=== PATIENT | female | born 1965 | race American Indian/Alaskan Native ===

== ENCOUNTER 2020-04-07 06:55 | Outpatient (CLI) | payer BC ==
--- NOTE | 2020-04-07 08:00 | XRay Report ---
LEFT SHOULDER 3 VIEWS INDICATION / CLINICAL INFORMATION: Left shoulder pain. Fall 3 years ago. COMPARISON: None available. FINDINGS: BONES / JOINT(S): There are mild degenerative changes involving the glenohumeral joint and moderate d egenerative changes involving the acromioclavicular joint. There is no evidence of fracture, subluxat ion or destructive lesion. SOFT TISSUES: No significant abnormality. ADDITIONAL FINDINGS: The visualized left lung is clear. IMPRESSION: Degenerative changes without acute abnormality. Signer Name: Josh Solorzano MD Signed: 04/07/2020 7:56 AM Workstation Name: [id number]
== END 2020-04-07 06:56 | disposition home or self-care (01) ==
LOC: XRAY 06:55
PROVIDERS: ATTEND Internal Medicine
DX: M19.012 Primary osteoarthritis, left shoulder (principal)

== ENCOUNTER 2020-04-09 12:39 | Outpatient (CLI) | payer BC ==
[2020-04-09 13:32] LABS: Hematocrit 44.3 % (30.3-42.9); Mean Corpuscular HGB Conc 34 % (30-34); Mean Corpuscular Volume 83 fl (79-97); Platelet Count 207 K/mm3 (140-440); Red Blood Count 5.36 M/mm3 (3.65-5.03); Red Cell Distribution Width 16.4 % (13.2-15.2)
[2020-04-09 13:51] LABS: Alanine Aminotransferase 17 units/L (7-56); Albumin 4.5 g/dL (3.9-5); BUN/Creatinine Ratio 17; Blood Urea Nitrogen 15 mg/dL (7-17); Calcium 9.4 mg/dL (8.4-10.2); Chol/HDL Ratio 2.69 %; HDL Cholesterol 68 mg/dL (40-59); Hemolysis Index 6; LDL Cholesterol,Direct 104 mg/dL (50-130)
[2020-04-09 15:15] LABS: Total Cells Counted 100
[2020-04-09 15:16] LABS: Platelet Estimate Consistent w Auto; RBC Morphology Normal
[2020-04-11 21:32] LABS: Vitamin D, 25-OH, D2 19 ng/mL
--- NOTE | 2020-04-12 08:12 | Mammography Report ---
DIGITAL SCREENING MAMMOGRAM WITH CAD, 04/09/2020 CLINICAL INFORMATION / INDICATION: Routine screening mammography. TECHNIQUE: Digital bilateral 2D mammography was obtained in the craniocaudal and mediolateral obliqu e projections. This examination was interpreted with the benefit of Computer-Aided Detection analysis . COMPARISON: None available. FINDINGS: Breast Density: There are scattered areas of fibroglandular density. No dominant mass, suspicious calcifications, or architectural distortion in either breast. IMPRESSION: No mammographic evidence of malignancy. Follow up recommendation: Routine yearly BI-RADS Category 1: Negative. A "normal" or negative report should not discourage follow up or biopsy of a clinically significant f inding. A written summary of these findings will be mailed to the patient. The patient will be entered into a mammography reporting system which will generate a reminder letter for the patient's next appointmen t at the appropriate interval. The [employer] recommends yearly mammograms starting at age 40 and continuing as l heather as a woman is in good health. Breast MRI is recommended for women with an approximate 20-25% or greater lifetime risk of breast cancer, including women with a strong family history of breast or ova celina cancer or who have been treated for Hodgkin's disease. Signer Name: Benjy Huang MD Signed: 04/12/2020 8:08 AM Workstation Name: [email or web address]
== END 2020-04-09 12:40 | disposition home or self-care (01) ==
LOC: MAMMO 12:39
PROVIDERS: ATTEND Internal Medicine
DX: Z12.31 Encounter for screening mammogram for malignant neoplasm of breast (principal); Z00.00 Encounter for general adult medical examination without abnormal findings; Z13.1 Encounter for screening for diabetes mellitus; E55.9 Vitamin D deficiency, unspecified; E56.9 Vitamin deficiency, unspecified; R94.6 Abnormal results of thyroid function studies; Z13.220 Encounter for screening for lipoid disorders
CPT/HCPCS: 36415; 77067; 80053; 80061; 82306; 82607; 83036; 84443; 85007; 85025

== ENCOUNTER 2020-04-14 12:23 | Outpatient (CLI) | payer BC | END 2020-04-14 12:24 | disposition home or self-care (01) | LOC: LAB 12:23 | PROVIDERS: ATTEND Internal Medicine | DX: Z01.419 Encounter for gynecological examination (general) (routine) without abnormal findings (principal) | CPT/HCPCS: 36415; 87491; 87591 ==

== ENCOUNTER 2021-06-20 06:59 | Outpatient (CLI) | payer BC ==
--- NOTE | 2021-06-21 15:42 | Mammography Report ---
DIGITAL SCREENING MAMMOGRAM WITH CAD, 06/20/2021 CLINICAL INFORMATION / INDICATION: Routine screening TECHNIQUE: Digital bilateral 2D mammography was obtained in the craniocaudal and mediolateral obliqu e projections. This examination was interpreted with the benefit of Computer-Aided Detection analysis . COMPARISON: 07/22/2020 FINDINGS: Breast Density: The breasts are heterogeneously dense, which may obscure small masses. No dominant mass, suspicious calcifications, or architectural distortion in either breast. IMPRESSION: No mammographic evidence of malignancy. Follow up recommendation: Routine yearly BI-RADS Category 1: NEGATIVE A "normal" or negative report should not discourage follow up or biopsy of a clinically significant f inding. A written summary of these findings will be mailed to the patient. The patient will be entered into a mammography reporting system which will generate a reminder letter for the patient's next appointmen t at the appropriate interval. The [employer] recommends yearly mammograms starting at age 40 and continuing as l heather as a woman is in good health. Breast MRI is recommended for women with an approximate 20-25% or greater lifetime risk of breast cancer, including women with a strong family history of breast or ova celina cancer or who have been treated for Hodgkin's disease. Signer Name: Farhat Murphy MD Signed: 06/21/2021 3:38 PM Workstation Name: [id number]
== END 2021-06-20 07:00 | disposition home or self-care (01) ==
LOC: MAMMO 06:59
PROVIDERS: ATTEND Internal Medicine
DX: Z12.31 Encounter for screening mammogram for malignant neoplasm of breast (principal)
CPT/HCPCS: 77067

== ENCOUNTER 2021-07-06 07:34 | Outpatient (CLI) | payer BC ==
[2021-07-06 08:13] LABS: Hematocrit 44.5 % (30.3-42.9); Hemoglobin 14.2 gm/dl (10.1-14.3); Mean Corpuscular HGB Conc 32 % (30-34); Mean Corpuscular Volume 84 fl (79-97); Platelet Count 195 K/mm3 (140-440); Red Blood Count 5.28 M/mm3 (3.65-5.03); Red Cell Distribution Width 15.9 % (13.2-15.2)
[2021-07-06 08:34] LABS: Alanine Aminotransferase 22 units/L (7-56); Albumin 4.8 g/dL (3.9-5); BUN/Creatinine Ratio 13; Blood Urea Nitrogen 12 mg/dL (7-17); Calcium 9.8 mg/dL (8.4-10.2); Chol/HDL Ratio 2.54 %; HDL Cholesterol 74 mg/dL (40-59); Hemolysis Index 7; LDL Cholesterol,Direct 101 mg/dL (50-130)
--- NOTE | 2021-07-06 09:12 | Vascular Lab Report ---
DUPLEX DOPPLER LOWER EXTREMITY VEINS, BILATERAL INDICATION: R60.9 EDEMA,UNSPECIFIED. TECHNIQUE: Duplex doppler imaging was performed through the veins of both lower extremities using ve nous compression and other maneuvers. COMPARISON: No relevant prior imaging study available. FINDINGS: Right Common femoral vein: Negative. Right Superficial femoral vein: Negative. Right Popliteal vein: Negative. Right Calf veins: Negative. Left Common femoral vein: Negative. Left Superficial femoral vein: Negative. Left Popliteal vein: Negative. Left Calf veins: Negative. Additional findings: None. IMPRESSION: No sonographic evidence for DVT in either lower extremity. Signer Name: Carrillo Jimenez Jr, MD Signed: 07/06/2021 9:07 AM Workstation Name: [id number]
--- NOTE | 2021-07-06 09:43 | XRay Report ---
LUMBOSACRAL SPINE 3 VIEWS INDICATION: back pain. COMPARISON: None. IMPRESSION: Normal alignment. Moderate discogenic DJD and facet arthropathy are identified at all l evels. The SI joints are unremarkable. No acute osseous or soft tissue abnormality. Signer Name: Carrillo Jimenez Jr, MD Signed: 07/06/2021 9:38 AM Workstation Name: [id number]
[2021-07-06 10:04] LABS: Basophils % (Manual) 0 % (0.0-1.8); Total Cells Counted 100
[2021-07-06 10:07] LABS: Hypochromasia Few; Platelet Estimate Consistent w Auto; RBC Morphology Normal
== END 2021-07-06 07:35 | disposition home or self-care (01) ==
LOC: VAS 07:34
PROVIDERS: ATTEND Internal Medicine
DX: M47.817 Spondylosis without myelopathy or radiculopathy, lumbosacral region (principal); R60.9 Edema, unspecified; E66.9 Obesity, unspecified; E55.9 Vitamin D deficiency, unspecified; R73.9 Hyperglycemia, unspecified
CPT/HCPCS: 36415; 72100; 80053; 80061; 82306; 82607; 84443; 85007; 85025; 93970

== ENCOUNTER 2021-07-13 07:23 | Outpatient (CLI) | payer BC | END 2021-07-13 07:24 | disposition home or self-care (01) | LOC: ECHO 07:23 | PROVIDERS: ATTEND Internal Medicine | DX: I08.8 Other rheumatic multiple valve diseases (principal) | CPT/HCPCS: 93306; C8929 ==